=== PATIENT | male | born 1960 | race Caucasian/White ===

== ENCOUNTER → 2024-01-09 13:31 | Outpatient (REF) | payer OTHER, SELFPAY | LOC: HWRCS 13:31 | PROVIDERS: ATTENDING PHYSICIAN Internal Medicine Cardiovascular Disease; FAMILY PHYSICIAN Family Medicine | DX: I25.10 Atherosclerotic heart disease of native coronary artery without angina pectoris (principal) | CPT/HCPCS: 93306 ==

== ENCOUNTER → 2025-01-05 08:18 | Outpatient (REF) | payer OTHER, SELFPAY | LOC: HWRCS 08:18 | PROVIDERS: ATTENDING PHYSICIAN Student in an Organized Health Care Education/Training Program; FAMILY PHYSICIAN Family Medicine | DX: I25.10 Atherosclerotic heart disease of native coronary artery without angina pectoris (principal) | CPT/HCPCS: 93306 ==